=== PATIENT | female | born 1950 | race Caucasian/White ===

== ENCOUNTER 2016-08-16 09:43 | Emergency (ER) | payer OTHER ==
[2016-08-16 10:00] VITALS: BP 129/80; PULSE 88; TEMP 98.3; BMI 23.3
--- NOTE | 2016-08-16 10:41 | PDOC ---
History of Present Illness - General Chief Complaint: Edema Stated Complaint: LT ANKLE SWELLING Time Seen by Provider: 08/16/16 10:33 History Source: Patient Exam Limitations: No Limitations - History of Present Illness Initial Comments: CHIEF COMPLAINT: 65 y/o afebrile female with PMH HLD (untreated) c/o left ankle swelling x 6 months. HISTORY OF PRESENT ILLNESS: The patient states her left ankle has been getting swollen for "many months". The swelling is worse at night after she's been moving around all day. She has no pain in her left ankle or leg and the swelling seems to go away by the morning. She also has watery eyes and allergy symptoms for which she hasn't taken anything. She denies CALDERON, neck pain, f/c, n/ v/d, earache, runny nose, CP, SOB, palpitations, abd pain, back pain, hematuria , dysuria, calf pain. Vital signs on arrival are within normal limits. REVIEW OF SYSTEMS: GENERAL/CONSTITUTIONAL: No fever/chills. No weakness. No weight change. HEENT: +watery eyes. GENITOURINARY: No dysuria, frequency, or change in urination. MUSCULOSKELETAL: +left ankle swelling. No neck or back pain. SKIN: No rash or easy bruising. NEUROLOGIC: No headache, vertigo, loss of consciousness, or loss of sensation. PHYSICAL EXAM: VITAL_SIGNS: within normal limits GENERAL_APPEARANCE: alert, cooperative, no obvious discomfort. The patient is very well appearing and ambulatory, in NAD or obvious discomfort. MENTAL_STATUS: speech clear, oriented X 3, responds appropriately to questions. NEURO: motor intact and sensory intact in injured extremity. EXTREMITIES: 2+ dorsalis pedis pulse left foot. No erythema, warmth, cyanosis or TTP of left foot, ankle or leg. negative judith's sign. Multiple varicose veins noted on left LE. 1+ pitting edema left ankle. Full flexion, extension, eversion and inversion of left ankle. SKIN: warm, dry, good color. Past History - Past Medical History Allergies/Adverse Reactions: Allergies Allergy/AdvReac Type Severity Reaction Status Date / Time No Known Allergies Allergy Verified 08/16/16 09:55 Home Medications: Ambulatory Orders NK [No Known Home Medication] 08/16/16 Hypercholesterolemia: Yes - Psycho/Social/Smoking Cessation Hx Suicidal Ideation: No Smoking History: Never smoked *Physical Exam - Vital Signs Last Vital Signs Temp Pulse Resp BP Pulse Ox 98.3 F 88 19 129/80 97 08/16/16 09:55 08/16/16 09:55 08/16/16 09:55 08/16/16 09:55 08/16/16 09:55 Medical Decision Making - Medical Decision Making A/p: 65 y/o afebrile female with left dependent edema. Plan is as follows: 1. EDMOND bandage The patient is requesting claritin for allergy symptoms. Will discharge to home with dx of dependent edema. Suggested she elevate and ice her left foot as often as she can, especially at the end of the day. Suggested she f/u with her doctor within 1 week for further evaluation and return to the ER with any worsening or concerning symptoms. The patient verbalizes understanding of all instructions, has no further questions and is awaiting discharge. *DC/Admit/Observation/Transfer Diagnosis at time of Disposition: Dependent edema Seasonal allergies Qualifiers: Allergic rhinitis trigger: unspecified Qualified Code(s): J30.2 - Other seasonal allergic rhinitis - Discharge Dispostion Disposition: HOME Condition at time of disposition: Good - Patient Instructions Printed Discharge Instructions: DI for Conjunctivitis, DI for Dependent Edema, How To Perform RICE (Rest, Ice, Compress, Elevate) Additional Instructions: Discharge Instructions: -Take over the counter allergy meds for your watery eyes. -Use the EDMOND bandage and follow RICE instructions for your ankle swelling -Follow up with your doctor within 1 week -Return to the ER with any worsening or concerning symptoms
[2016-08-16] MEDS ORDERED: LORATADINE 10 MG TABLET PO ONE (10:58)
[2016-08-16] MEDS ORDERED: LORATADINE 10 MG TABLET ONE (11:03)
== END 2016-08-16 11:10 | disposition home or self-care (01) ==
LOC: JERFT 09:43
DX: R60.0 Localized edema (principal); J30.2 Other seasonal allergic rhinitis; E78.5 Hyperlipidemia, unspecified
CPT/HCPCS: 99281-25

== ENCOUNTER 2019-12-08 08:43 | Inpatient (IN) | payer OTHER ==
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
[2019-12-08 10:26] LABS: BASO % 0.3 % (0-2.0); EOS % 0.9 % (0-4.5); HEMATOCRIT 41.1 % (32.4-45.2); HEMOGLOBIN 13.6 GM/dL (10.7-15.3); LYMPH % 18.2 % (8-40); MCH 30.4 pg (25.7-33.7); MCHC 33.1 g/dl (32.0-36.0); MEAN CELL VOLUME 91.9 fl (80-96); MEAN PLT VOLUME 8.8 fl (7.5-11.1); MONO % 8.2 % (3.8-10.2); NEUT % 72.4 % (42.8-82.8); PLATELET COUNT 224 K/MM3 (134-434); RBC 4.47 M/mm3 (3.60-5.2); RDW 13.3 % (11.6-15.6); WHITE BLOOD COUNT 6.9 K/mm3 (4.0-10.0)
[2019-12-08 10:29] LABS: COCAINE, UR NEGATIVE ng/ml (CUTOFF=300); OPIATES, URI NEGATIVE ng/ml (CUTOFF=300); URINE AMPHETAMINES NEGATIVE ng/ml (CUTOFF=500); URINE BARBITURATES NEGATIVE ng/ml (CUTOFF=200)
[2019-12-08 10:30] LABS: EPI CELLS 14 /uL (0-25.1); HYALINE CASTS 2 /uL (0-3.1); METHADONE, UR NEGATIVE ng/ml (CUTOFF=300); PH,URINE 7.5 (5.0-8.0); PHENCYCLIDINE,URINE NEGATIVE ng/ml (CUTOFF=25); URINE APPEARANCE CLEAR; URINE BACTERIA 75 /uL (0-1359); URINE BENZODIAZEPINES NEGATIVE ng/ml (CUTOFF=200); URINE BILIRUBIN NEGATIVE (NEGATIVE); URINE COLOR YELLOW; URINE GLUCOSE (UA) NEGATIVE (NEGATIVE); URINE KETONE NEGATIVE (NEGATIVE); URINE LEUK ESTERASE NEGATIVE (NEGATIVE); URINE NITRITE NEGATIVE (NEGATIVE); URINE PROTEIN NEGATIVE (NEGATIVE); URINE RBC 82 /uL (0-23.9); URINE UROBILINOGEN 0.2 mg/dL (0.2-1.0); URINE WBC 6 /uL (0-25.8)
[2019-12-08 10:33] LABS: INR 0.95 (0.83-1.09); PROTHROMBIN TIME (PATIENT) 11.2 SEC (9.7-13.0)
[2019-12-08 10:35] LABS: ACTIVATED PTT 34.3 SECONDS (25.2-36.5)
[2019-12-08] MEDS ORDERED: HALOPERIDOL LACTATE 5 MG/ML IM ONE (10:40)
[2019-12-08] MEDS ORDERED: HALOPERIDOL LACTATE 5 MG/ML ONE (10:56)
[2019-12-08 10:58] LABS: ALBUMIN 3.8 g/dl (3.4-5.0); ALK PHOS 52 U/L (45-117); ANION GAP 6 MMOL/L (8-16); BILIRUBIN,TOTAL 1.4 mg/dL (0.2-1); BLOOD UREA NITROGEN 14.4 mg/dL (7-18); CALCIUM 9.2 mg/dL (8.5-10.1); CHLORIDE 105 mmol/L (98-107); CO2 29 mmol/L (21-32); GLUCOSE,RANDOM 158 mg/dL (74-106); LIPASE 101 U/L (73-393); MAGNESIUM 2.4 mg/dL (1.8-2.4); PHOSPHOROUS 3.1 mg/dL (2.5-4.9); POTASSIUM 4.1 mmol/L (3.5-5.1); SGOT/AST 17 U/L (15-37); SGPT/ALT 16 U/L (13-61); SODIUM 140 mmol/L (136-145); TOT PROT 7.4 g/dl (6.4-8.2)
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
[2019-12-08] MEDS ORDERED: ACETAMINOPHEN 325 MG TABLET (FP) PO PRN (15:06)
[2019-12-08] MEDS: HYDROCHLOROTHIAZIDE 25 MG TABLET (FP) PO SCH (17:19)
[2019-12-08 18:59] VITALS: BMI 21.9
[2019-12-08] MEDS: DORZOLAMIDE 2% HCL OPHTHALMIC SOLUTION 10 ML BOTTLE OU SCH (21:15)
[2019-12-08] MEDS: TIMOLOL 0.5% OPHTHALMIC SOL 5 ML BOTTLE OU SCH (21:15)
[2019-12-08] MEDS ORDERED: PATIENT'S OWN MEDICATION (NON-FORMULARY) (Dorzolamide/Timolol/Pf [Dorzolamide-Timolol 2%-0 OU SCH (22:00)
[2019-12-09 07:58] LABS: HEMATOCRIT 43.2 % (32.4-45.2); HEMOGLOBIN 14.2 GM/dL (10.7-15.3); MCH 30.5 pg (25.7-33.7); MCHC 32.9 g/dl (32.0-36.0); MEAN CELL VOLUME 92.6 fl (80-96); MEAN PLT VOLUME 8.5 fl (7.5-11.1); PLATELET COUNT 219 K/MM3 (134-434); RBC 4.66 M/mm3 (3.60-5.2); RDW 13.3 % (11.6-15.6); WHITE BLOOD COUNT 7.6 K/mm3 (4.0-10.0)
[2019-12-09 08:37] LABS: BLOOD UREA NITROGEN 8.8 mg/dL (7-18); CALCIUM 9.3 mg/dL (8.5-10.1); CREATININE 0.9 mg/dL (0.55-1.3)
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
[2019-12-09] MEDS: HYDROCHLOROTHIAZIDE 25 MG TABLET (FP) PO SCH (11:38)
[2019-12-09] MEDS: TIMOLOL 0.5% OPHTHALMIC SOL 5 ML BOTTLE OU SCH ×2 (11:40→21:54)
[2019-12-09] MEDS: DORZOLAMIDE 2% HCL OPHTHALMIC SOLUTION 10 ML BOTTLE OU SCH ×2 (11:41→21:54)
[2019-12-09 12:02] LABS: EPI CELLS 4 /uL (0-25.1); HYALINE CASTS 1 /uL (0-3.1); URINE APPEARANCE CLEAR; URINE BACTERIA 16 /uL (0-1359); URINE BILIRUBIN NEGATIVE (NEGATIVE); URINE COLOR YELLOW; URINE GLUCOSE (UA) NEGATIVE (NEGATIVE); URINE KETONE NEGATIVE (NEGATIVE); URINE LEUK ESTERASE TRACE (NEGATIVE); URINE NITRITE NEGATIVE (NEGATIVE); URINE PROTEIN NEGATIVE (NEGATIVE); URINE RBC 32 /uL (0-23.9); URINE UROBILINOGEN 0.2 mg/dL (0.2-1.0); URINE WBC 15 /uL (0-25.8)
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
[2019-12-10] MEDS ORDERED: PT OWN MED DRAWER 7, Y5N ONE (10:42)
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
[2019-12-10] MEDS: HYDROCHLOROTHIAZIDE 25 MG TABLET (FP) PO SCH (11:02)
[2019-12-10] MEDS: TIMOLOL 0.5% OPHTHALMIC SOL 5 ML BOTTLE OU SCH ×2 (11:02→21:36)
[2019-12-10] MEDS: DORZOLAMIDE 2% HCL OPHTHALMIC SOLUTION 10 ML BOTTLE OU SCH ×2 (11:02→21:36)
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
--- NOTE | 2019-12-10 15:39 | DS ---
Physical Exam: SUBJECTIVE: Patient seen and examined OBJECTIVE: Vital Signs Period Temp Pulse Resp BP Sys/Yung Pulse Ox Last 24 Hr 98 F-99.1 F 71-98 18-20 114-143/61-89 98-100 PHYSICAL EXAM GENERAL: The patient is awake, alert, and fully oriented, in no acute distress. HEAD: Normal with no signs of trauma. EYES: PERRL, extraocular movements intact, sclera anicteric, conjunctiva clear. ENT: Ears normal, nares patent, oropharynx clear without exudates, moist mucous membranes. NECK: Trachea midline, full range of motion, supple. LUNGS: Breath sounds equal, clear to auscultation bilaterally, no wheezes, no crackles, no accessory muscle use. HEART: Regular rate and rhythm, S1, S2 without murmur, rub or gallop. ABDOMEN: Soft, nontender, nondistended, normoactive bowel sounds, no guarding, no rebound, no hepatosplenomegaly, no masses. EXTREMITIES: 2+ pulses, warm, well-perfused, no edema. NEUROLOGICAL: Cranial nerves II through XII grossly intact. Normal speech, gait not observed. PSYCH: Normal mood, normal affect. SKIN: Warm, dry, normal turgor, no rashes or lesions noted. LABS HOSPITAL COURSE: Date of Admission:12/08/19 Date of Discharge: 12/10/19 Discharge Summary Problems reviewed: Yes Reason For Visit: NEED FOR FOLLOWUP BY ELECTRICAL TEST ENGINEER;PARANOID DISORD Current Active Problems At risk for unsafe behavior (Acute) Need for follow-up by clinical social worker (Acute) Paranoia (Acute) Condition: Stable - Instructions Diet, Activity, Other Instructions: You were sent to the hospital for psychiatric complaints to rule out any medical conditions. You were monitored in the hospital, seen by the psychiatrist and cleared for discharge home as there were no acute medical findings. You were seen by the clinical social worker to help make arrangements proceed to go home safely. Medications Please take all of your medications as prescribed. Follow Up Please follow up with your primary care physician as an outpatient. Disposition: HOME - Home Medications Comprehensive Discharge Medication List: Ambulatory Orders Dorzolamide/Timolol/Pf [Dorzolamide-Timolol 2%-0.5%] 1 each OU BID 12/08/19 Hydrochlorothiazide [Hctz -] 25 mg PO DAILY 12/08/19 - Discharge Referral Referred to [facility] No ATTENDING PHYSICIAN STATEMENT I saw and evaluated the patient. I reviewed the resident's note and discussed the case with the resident. I agree with the resident's findings and plan as documented. SUBJECTIVE: OBJECTIVE: ASSESSMENT AND PLAN:
--- NOTE | 2019-12-10 21:55 | EKG ---
Test Reason : Blood Pressure : / mmHG Vent. Rate : 069 BPM Atrial Rate : 069 BPM P-R Int : 144 ms QRS Dur : 088 ms QT Int : 366 ms P-R-T Axes : 068 004 053 degrees QTc Int : 392 ms NORMAL SINUS RHYTHM WITH SINUS ARRHYTHMIA NORMAL ECG NO PREVIOUS ECGS AVAILABLE Confirmed by FRANCOIS IZQUIERDO MD ([id number]) on 12/10/2019 9:54:46 PM Referred By: Confirmed By:FRANCOIS IZQUIERDO MD
[2019-12-11 10:01] VITALS: BP 133/74; PULSE 74; TEMP 98.1
[2019-12-11] MEDS: DORZOLAMIDE 2% HCL OPHTHALMIC SOLUTION 10 ML BOTTLE OU SCH (10:01)
[2019-12-11] MEDS: TIMOLOL 0.5% OPHTHALMIC SOL 5 ML BOTTLE OU SCH (10:01)
[2019-12-11] MEDS: HYDROCHLOROTHIAZIDE 25 MG TABLET (FP) PO SCH (10:03)
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
== END 2019-12-11 13:34 | disposition home or self-care (01) | DRG 923 ==
LOC: JER 08:43 → JERBED 11:58 → J5S 16:55
PROVIDERS: ADMIT Internal Medicine
DX: T76.91XA Unspecified adult maltreatment, suspected, initial encounter (principal); Z91.89 Other specified personal risk factors, not elsewhere classified; I10 Essential (primary) hypertension; E78.5 Hyperlipidemia, unspecified; H40.9 Unspecified glaucoma
CPT/HCPCS: 36415; 70450-TC; 71045-TC-FY; 80048; 80053; 80307; 81003; 82550; 82607; 82746; 83690; 83735; 84100; 84443; 84484; 85025; 85027; 85610; 85730; 87086; 93005; 93010; 99285-25; U0003

== ENCOUNTER 2020-07-05 11:35 | Emergency (ER) | payer OTHER ==
[2020-07-05 11:38] VITALS: BP 147/53; PULSE 83; TEMP 97.8; BMI 24.2
== END 2020-07-05 13:48 | disposition home or self-care (01) ==
LOC: JERFT 11:35
DX: M79.652 Pain in left thigh (principal)
CPT/HCPCS: 73564-TC-LT-FY; 93971-TC; 99284-25